=== PATIENT | male | born 2000 | race Caucasian/White ===

== ENCOUNTER 2018-05-12 18:43 | Emergency (ER) | payer OTHER ==
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
== END 2018-05-12 20:06 | disposition home or self-care (01) ==
LOC: JD.ED 18:43
DX: T23.271A Burn of second degree of right wrist, initial encounter (principal); T23.102A Burn of first degree of left hand, unspecified site, initial encounter; T23.101A Burn of first degree of right hand, unspecified site, initial encounter; T20.111A Burn of first degree of right ear [any part, except ear drum], initial encounter; X08.8XXA Exposure to other specified smoke, fire and flames, initial encounter
CPT/HCPCS: 99283; 99284

== ENCOUNTER 2022-03-24 13:43 | Emergency (ER) | payer BC, OTHER | END 2022-03-24 14:50 | disposition home or self-care (01) | LOC: JD.ED 13:43 | DX: S63.601A Unspecified sprain of right thumb, initial encounter (principal); W22.09XA Striking against other stationary object, initial encounter | CPT/HCPCS: 73130-26-RT; 73130-RT; 99283 ==